=== PATIENT | male | born 1985 | race Caucasian/White ===

== ENCOUNTER 2024-06-21 23:31 | Observation (INO) | payer OTHER, SELFPAY ==
[2024-06-21 20:42] VITALS: BP 146/99
--- NOTE | 2024-06-21 21:31 | ED.GENMED ---
History of Present Illness
General
Chief Complaint: Skin Problem
Source: patient
Exam Limitations: none
Time Seen by Provider: 06/21/24 21:24
History of Present Illness
History of Present Illness:
This is a 38 year old male that comes in with c/o redness on the right posterior leg. States that last week he thinks he was bitten by something. State that there was 3 red spots. Patient went to on Wednesday and was give Bactrim and Amoxicillin.
States that he was told to come back today. States that he was told that the antibiotics are not working as the redness has spread and to come to the ER. States that he was nauseated yesterday after taking the medication. states that he had 2 doses
on Wednesday, Wednesday of both medication and one dose this morning of both. Denies any fever, chills, chest pain, SOB, abd pain, vomiting, diarrhea, headache, dizziness, urinary burning.
Past History
Past History
ED Past Medical History: None
ED Past Surgical History: Urological (Vasectomy)
Social History
Tobacco: Non-smoker (Former chewed tobacco)
Alcohol: Occasional
Personal: Other ()
Living: with family
Employment: Employed
Review of Systems
Review of Systems
All Other Systems: ROS reviewed and negative except as documented in HPI and ROS
Constitutional: Reports no symptoms; Denies fever or chills
EENT: Reports no symptoms
Respiratory: Reports no symptoms; Denies cough or trouble breathing
Cardiac: Reports no symptoms; Denies chest pain
ABD/GI: Reports nausea; Denies abdominal pain, vomiting or diarrhea
Musculoskeletal: Reports no symptoms
Skin: Reports rash (Redness on the right posterior thigh)
Neurological: Reports no symptoms; Denies dizzy or headache
Psychiatric: Reports no symptoms
Phy Exam
General Physical Exam
General Presentation: well appearing and no apparent distress
General age: appears stated age
General Skin: warm and dry
General Habitus: normal
General Mental: alert
General Hydration: appears well hydrated
ENT Exam
ENT Exam: TM's normal, pharynx normal and neck supple
Eye Exam
Eye Exam: EOMI
Cardiovascular Exam
Cardiovascular Exam: regular rate/rhythm, no edema, no murmur and normal peripheral pulses
Pulmonary Exam
Pulmonary Exam: lungs clear, no respiratory distress, no rales, chest non tender, no crackles, no rhonchi, no wheezing and no cough
Gastrointestinal Exam
Gastrointestinal Exam: normal bowel sounds, non tender, soft, no organomegaly, no pulsatile mass and non distended
Musculoskeletal Exam
Musculoskeletal Exam: full ROM and no edema
Skin Exam
Skin Exam: normal color, warm/dry, no petechia and redness (Right posterior thigh, Negative for increased warmth, Redness has increased markings. )
Psychiatric Exam
Psychiatric Exam: normal mood/affect
Course
Orders/Labs/Results
Orders:
Orders
06/21/24 21:45
Complete Blood Count/With Diff Urgent
Comprehensive Metabolic Panel Urgent
Lactic Acid Urgent
06/21/24 22:36
Zosyn 3.375 grams IVPB NOW Piperacillin/Tazo 3.375 Gram [Zosyn] 3.375 gram in 50 ml IV NOW
06/21/24 22:37
*Vancomycin 1,500 mg Loading Dose(consider for 50-69 kg; MAX HD load) Vancomycin [Vancocin] 1,500 mg 0.9% Sodium Chloride 500 ml [Nss] 500 ml IV NOW
Abnormal Lab Results
06/21/24
21:45
MCH 31.8 H pg
(27.0-31.0)
MCHC 37.1 H g/dL
(33.0-37.0)
Eosinophils % 6.4 H %
(0-6)
Creatinine 1.4 H mg/dL
(0.7-1.3)
Glucose 124 H mg/dl
(70-99)
06/21/24 21:45
06/21/24 21:45
Cr slightly elevated. Hyperglycemia. lactic acid 1.9
Vital Signs
Initial and Last Documented VS:
Initial Vital Signs
Temp Pulse Resp BP Pulse Ox
98.9 F 85 20 146/99 100
06/21/24 20:42 06/21/24 20:42 06/21/24 20:42 06/21/24 20:42 06/21/24 20:42
Last Documented Vital Signs
Temp Pulse Resp BP Pulse Ox
98.9 F 85 20 146/99 100
06/21/24 20:42 06/21/24 20:42 06/21/24 20:42 06/21/24 20:42 06/21/24 20:42
MDM/Problems Addressed
Differential Diagnosis Includes:
Cellulitis,
MDM/Problems Addressed:
This is a 38 year old male that comes in with c/o redness or the right posterior thigh. States that he was bitten by something last week and he went to on Wednesday and was placed on Bactrim and Amoxicillin. Patient went back today and was told to
come to the ER as the redness has spread.
will check labs and admit for Cellulitis.
back into see patient. Explained that his WBC are normal, but patient has been on antibiotics. Lactic acid is normal but high normal. Will admit and start on IV antibiotics. Hospitalist notified.
Chronic conditions affecting care:
NA
Acute Exacerbation and/or Progression of Chronic Illness:
NA
*Pulse Oximetry
Patient hypoxic: no
*EKG
Interpreted by ED Provider?: NA
Rate: EKG- N/A
*[facility] Intern Interpretation
Rate: [facility] Intern- N/A
*Critical Care Note
Total Time (30-74mins, 75-104mins- exclusive of procedures): Not Applicable
ED Attending Note
-
Portions of this chart may have been created with voice recognition software.� Occasional wrong word or��sound alike� substitutions may have occurred due to the inherent limitations of voice recognition software.
Discharge Plan
Departure
Patient Disposition: Admit
Date of Disposition: 06/21/24
Time of Disposition: 22:40
Admit to: Med/Surg
Presentation/result/management discussed w/ accepting MD/DO: Hospitalist
Patient with high blood pressure during this ER visit?: Yes
Condition: Good
Covid-19: Not Applicable
Discharge Problem:
Cellulitis of right thigh
Prescriptions:
No Action
cetirizine-pseudoephedrine [Cetiri-D] 5-120 mg Tablet Extended Release 12 Hr
1 tab PO DAILYPRN PRN (Reason: allergies)
Theragen Tablet
1 tab PO DAILY
sulfamethoxazole-trimethoprim [Bactrim DS] 800-160 mg Tablet
1 tab PO BID
Patient Comments:
06/21/24: to take for 10 days, filled 06/19/24
amoxicillin-pot clavulanate [Augmentin] 875-125 mg Tablet
1 tab PO BID
Patient Comments:
06/21/24: to take for 10 days, filled 06/19/24
Referrals:
NONE,* [Family Provider] -
Interventions
Interventions:
*Risk Screen - Suicide Last Done: 06/21/24 20:42
*General Assessment Last Done: 06/21/24 21:45
*Neglect/Abuse Screening Last Done: 06/21/24 20:42
ED- Fall Risk Assessment Last Done: 06/21/24 21:52
ED-Skin Assessment Last Done: 06/21/24 21:52
Discharge Date and Time
Print Language: URDU
[2024-06-21 21:53] LABS: % Eosinophils 6.4 % (0-6); % Immature Granulocytes 0.3 % (0-0.5); % Lymphocytes 34.8 % (20.5-51.1); % Monocytes 6.3 % (1.7-9.3); % Neutrophils 51.2 % (42.2-75.2); Absolute Basophils 0.1 10^3/uL (0-0.2); Absolute Eosinophils 0.5 10^3/uL (0-0.7); Absolute Lymphocytes 2.5 10^3/uL (1.2-3.4); Absolute Monocytes 0.5 10^3/uL (0.1-0.6); Absolute Neutrophils 3.7 10^3/uL (1.4-6.5); Hemoglobin 15.6 g/dL (13.0-18.0); Mean Corp Hgb Conc. 37.1 g/dL (33.0-37.0); Mean Corpuscular Hgb 31.8 pg (27.0-31.0); Mean Corpuscular Volume 85.5 fL (80.0-94.0); Mean Platelet Volume 9.5 fL (7.4-10.4); Nucleated Red Blood Cells % 0 % (-); Platelet Count 234 10^3/uL (130-400); Red Blood Cell Count 4.91 10^6/uL (4.70-6.10); Red Cell Dist. Width 11.8 % (11.5-14.5); White Blood Cell Count 7.2 10^3/uL (4.8-10.8)
[2024-06-21 22:05] LABS: Lactic Acid 1.9 mmol/L (0.7-2.0)
[2024-06-21 22:10] VITALS: BMI 26.8
[2024-06-21 22:10] LABS: ALT (SGPT) 27 U/L (0-50); AST (SGOT) 30 U/L (17-59); Albumin 4.9 g/dl (3.5-5.0); Alkaline Phosphatase 88 U/L (38-126); Blood Urea Nitrogen 19 mg/dl (9-20); Carbon Dioxide 22 mmol/L (22-30); Chloride 101 mmol/L (98-107); Glucose 124 mg/dl (70-99); Potassium 3.8 mmol/L (3.5-5.1); Sodium 138 mmol/L (135-145); Total Bilirubin 0.4 mg/dl (0.2-1.3); Total Protein 7.8 g/dl (6.3-8.2); eGFR > 60.00
--- NOTE | 2024-06-21 22:53 | HPS.HSE ---
Family Physician
-
Family Physician: * NONE
Chief Complaint
-
Redness of Right Thigh
History of Present Illness
Patient is a 38 y/o male without significant past medical history who presents with redness of right thigh. Patient reports he noted a few red dots on the back of his thigh last week. Over the coarse of week the redness has gotten much worse,
associated with intense pruritus which is much worse at night. He was seen at urgent care on Wednesday (2 day ago) at which time he was started on Augmentin and Bactrim. While at urgent care they marked the edges of the redness. Patient reports the
redness has expanded outside the markings prompting him to come to the emergency room for evaluation. He denies fevers, sweats or chills.
Medical History
Past Medical History
Past Medical History: Reports None
Past Surgical History: Reports Other
Additional Past Surgical History:
Vasectomy
Social History
Tobacco: Non-smoker
Alcohol: Occasional
Drug: None
Family History
Family History: Not pertinent
Allergies / Home Medications
Allergies reflects when Allergies were last updated in [facility].
Home Medications with original date entered in [facility]
Allergy/Medication List:
Allergies
Allergy/AdvReac Type Severity Reaction Status Date / Time
No Known Allergies Allergy Verified 06/21/24 20:44
Home Medications
amoxicillin 875 mg-potassium clavulanate 125 mg tablet 1 tab PO BID 06/21/24
cetirizine 5 mg-pseudoephedrine ER 120 mg tablet,extended release,12hr (Cetiri-D) 1 tab PO DAILYPRN PRN allergies 06/21/24
sulfamethoxazole 800 mg-trimethoprim 160 mg tablet (Bactrim DS) 1 tab PO BID 06/21/24
therapeutic multivitamin 1 tab PO DAILY 06/21/24
Review of Systems
-
A 12 point ROS was completed and negative except as noted: Yes
Constitutional: Denies Fever or Chills
Physical Exam
Vital Signs
Vital Signs
Temp Pulse Resp BP Pulse Ox
98.9 F 85 20 146/99 100
06/21/24 20:42 06/21/24 20:42 06/21/24 20:42 06/21/24 20:42 06/21/24 20:42
Physical Exam
General: Comfortable and Conversant
HEENT: Anicteric and Moist mucous membranes
Respiratory: Clear and Non Labored Respirations
Cardiac: S1/S2 and Regular Rhythm
GI: Soft and Non Tender
Rectal: Deferred by Provider
Musculoskeletal: No Clubbing, No Cyanosis and No Edema
Skin: Other (Moderate erythema posterior right thigh slightly raised, rough and slightly scaly)
Neuro: Awake, Alert, Oriented and Nonfocal/grossly intact
Psych: Calm
Laboratory Results
-
06/21/24 21:45
06/21/24 21:45
Laboratory Results
Lactic Acid 1.9 mmol/L (0.7-2.0) 06/21/24 21:45
Total Bilirubin 0.4 mg/dl (0.2-1.3) 06/21/24 21:45
AST 30 U/L (17-59) 06/21/24 21:45
ALT 27 U/L (0-50) 06/21/24 21:45
Alkaline Phosphatase 88 U/L (38-126) 06/21/24 21:45
Data Reviewed
-
Lab Data: Labs Reviewed by me
Impression/Plan
-
Right Posterior Thigh Contact Dermatitis with Superimposed Cellulitis
-Transition to IV Ancef
-Add Benadryl prn for pruritus
-Consider topical steroids
Elevated Creatinine, unknown baseline
-Give IVFs overnight
-Recheck Creatinine in AM
DVT proph: Lovenox
Code Status: Full Code
--- NOTE | 2024-06-21 23:04 | W.PN.UPDATE ---
Update Note
Progress Note Update
Patient seen in conjunction with RUPAL. I agree with the findings on history and physical. I agree with the assessment and plan listed otherwise.
This is an otherwise healthy 38-year-old male with no known segment past medical history except for a vasectomy presenting to the emergency department with redness of posterior right thigh associated with some degree of pruritus. It is unclear
exactly when symptoms began but it started as 3 punctate spots in the area which some localized erythema. He is unaware of any insect bites. He rubbed the area frequently and it started spreading. He was seen in urgent care and was started on
Bactrim and Augmentin. He was told to return for follow-up a couple days later. At that time the redness spread and patient was referred to the ED. Patient himself denies any tenderness. He denies any warmth. He has no fevers or chills. He
denies any lower extremity edema. He has been no recent antibiotic use otherwise. No recent travel stop no recent infections. No prior history of MRSA or other skin infection.
In the ED was afebrile hemodynamically stable and in no acute distress. Examination shows erythematous patch with satellite lesions, no induration, no fluid collection, no tenderness to palpation. CBC within normal limits. Electrolytes
BUN/creatinine were also normal.
Assessment plan
Skin lesion - possible dermatitis vs cellulitis, less likely cellulitis
- admit to obs med surg
- cefazolin iv for now
- benadryl for icthing
- likely start topic steroid cream after completing abx course
DVT PPX - SCDs
Code status - full code
[2024-06-21] MEDS: ANCEF 10 IV (23:12)
[2024-06-21] MEDS: BENADRYL 25 MG PO (23:12)
[2024-06-21] MEDS: NSS 1000 IV (23:22)
[2024-06-21 23:28] VITALS: BP 140/86
[2024-06-22 04:27] VITALS: BP 118/86; BMI 27.5
[2024-06-22] MEDS: ANCEF 10 IV ×3 (06:30→21:06)
[2024-06-22 07:30] VITALS: BP 120/75
[2024-06-22] MEDS: BENADRYL 25 MG PO (07:46)
[2024-06-22 08:30] LABS: Hemoglobin 14.9 g/dL (13.0-18.0); Mean Corp Hgb Conc. 35.5 g/dL (33.0-37.0); Mean Corpuscular Volume 90.1 fL (80.0-94.0); Mean Platelet Volume 9.8 fL (7.4-10.4); Platelet Count 201 10^3/uL (130-400); Red Blood Cell Count 4.66 10^6/uL (4.70-6.10); Red Cell Dist. Width 11.9 % (11.5-14.5); White Blood Cell Count 5.3 10^3/uL (4.8-10.8)
[2024-06-22 08:48] LABS: Blood Urea Nitrogen 17 mg/dl (9-20); Calcium 9.6 mg/dl (8.4-10.2); Carbon Dioxide 27 mmol/L (22-30); Chloride 100 mmol/L (98-107); Estimated Creatinine Clearance 76 ml/min; Glucose 91 mg/dl (70-99); Potassium 4.1 mmol/L (3.5-5.1); Sodium 140 mmol/L (135-145); eGFR > 60.00
--- NOTE | 2024-06-22 12:30 | CM ---
Patient seen bedside, initial assessment completed. Patient resides with his children in a multiple story home. Patient is independent with ADLs/IADLs, denies VN/SNF history. Patient denies PCP, not interested in a list at this time. Patient
confirms pharmacy [facility] [place], confirms prescription coverage. Patient denies insecurities at home. CM reviewed OBS status, form signed, placed in chart, patient provided with copy. CM will continue to follow for all discharge planning needs.
Plan; home no needs likely.
--- NOTE | 2024-06-22 14:00 | W.PN.HOSP.TC ---
Today's Communication/Plan
-
provide topical steroids
stop ivf
continue abx one more day
discgharge tomorrow
Assessment / Plan
Assessment / Plan
Right posterior thigh cellulitis
-On exam patient have right 3 demarcated round areas of erythema, no purulence
-Potential differential of allergic skin reaction as patient voiced itching to area. question of bug bite
-Maintain on empiric IV ancef for now
-Providing topical steroids as well
-will need to f/u with dermatology in office if no improvement
Elevated Creatinine, unknown baseline
-Give IVFs overnight
-good oral intake, hold further IVF
DVT proph: Lovenox
Code Status: Full Code
Anticipated Discharge: Within 24 hours
Subjective/Interval History
-
Date of Service: June 22, 2024
continues to have some right posterior thigh itching
afebrile
Objective Data
-
Labs:
Laboratory Results
06/22/24
07:24
WBC 5.3
Hgb 14.9
Hct 42.0
Plt Count 201
Sodium 140
Potassium 4.1
Chloride 100
Carbon Dioxide 27
BUN 17
Creatinine 1.4 H
Glucose 91
Calcium 9.6
Vital Signs:
Vital Signs
Temp Pulse Resp BP Pulse Ox
98.1 F 66 18 120/75 99
06/22/24 07:30 06/22/24 07:30 06/22/24 07:30 06/22/24 07:30 06/22/24 07:30
I&O
06/21/24 06/22/24 06/23/24
06:59 06:59 06:59
Intake Total 480 / 480
Balance 480 / 480
Review of Systems
-
Respiratory: Reports No Symptoms
Cardiac: Reports No Symptoms
Abdomen/GI: Reports No Symptoms
Physical Exam
-
General: No Apparent Distress and Comfortable
HEENT: Negative Oxygen
Respiratory: Clear to Auscultation
Cardiac: Regular Rhythm and S1/S2; Negative Murmur or Rub
GI: Soft, Nontender, Nondistended and Normal Bowel Sounds
Skin: Other (Right lower posterior thigh 3 large area of erythema)
Neuro: Awake, Alert, Oriented, No Motor Deficits and Nonfocal/Grossly Intact
Psych: Calm
[2024-06-22 15:00] VITALS: BP 145/94
[2024-06-22] MEDS: TRIAMCINOLONE ACETONIDE 0.1% CREAM 1 APPLIC TOPICAL ×2 (15:39→21:06)
[2024-06-22 23:30] VITALS: BP 119/86
[2024-06-23] MEDS: ANCEF 10 IV (05:15)
[2024-06-23 07:00] VITALS: BP 123/82
[2024-06-23 07:15] LABS: Hematocrit 44.2 % (39.0-52.0); Hemoglobin 15.8 g/dL (13.0-18.0); Mean Corp Hgb Conc. 35.7 g/dL (33.0-37.0); Mean Corpuscular Hgb 32.3 pg (27.0-31.0); Mean Corpuscular Volume 90.4 fL (80.0-94.0); Mean Platelet Volume 9.8 fL (7.4-10.4); Platelet Count 189 10^3/uL (130-400); Red Blood Cell Count 4.89 10^6/uL (4.70-6.10); Red Cell Dist. Width 11.9 % (11.5-14.5); White Blood Cell Count 4.9 10^3/uL (4.8-10.8)
[2024-06-23 08:04] LABS: Blood Urea Nitrogen 16 mg/dl (9-20); Calcium 10.1 mg/dl (8.4-10.2); Carbon Dioxide 27 mmol/L (22-30); Chloride 101 mmol/L (98-107); Estimated Creatinine Clearance 76 ml/min; Glucose 93 mg/dl (70-99); Potassium 4.8 mmol/L (3.5-5.1); Sodium 140 mmol/L (135-145); eGFR > 60.00
--- NOTE | 2024-06-23 11:23 | CM ---
Chart reviewed home no needs.
Plan; Home no needs.
[2024-06-23] MEDS: TRIAMCINOLONE ACETONIDE 0.1% CREAM 1 APPLIC TOPICAL (11:33)
[2024-06-23 12:00] VITALS: BP 115/79
[2024-06-23 12:10] LABS: Urine Albumin Negative (Neg - Trace); Urine Bilirubin Negative (Negative); Urine Character Slightly Cloudy (Clear); Urine Color Yellow; Urine Glucose Negative (Negative); Urine Ketone Negative (Negative); Urine Leukocyte Negative (Negative); Urine Nitrite Negative (Negative); Urine Occult Blood Negative (Negative); Urine Urobilinogen Negative (Neg - 1+)
--- NOTE | 2024-06-23 16:11 | W.PN.HOSP.TC ---
Today's Communication/Plan
-
d/c home
Assessment / Plan
Assessment / Plan
Right posterior thigh cellulitis
-On exam patient have right 3 demarcated round areas of erythema, no purulence
-Potential differential of allergic skin reaction as patient voiced itching to area. question of bug bite
-Maintain on empiric IV ancef for now
-Providing topical steroids as well
-will need to f/u with dermatology in office if no improvement
Elevated Creatinine, unknown baseline
-Got IVF overnight
-Follow-up BMP prescription provided
-Patient to follow-up with nephrology in office if not improved
DVT proph: Lovenox
Code Status: Full Code
Anticipated Discharge: Today
Subjective/Interval History
-
Date of Service: June 23, 2024
no issues overnight
afebrile
Objective Data
-
Labs:
Laboratory Results
06/23/24
06:30
WBC 4.9
Hgb 15.8
Hct 44.2
Plt Count 189
Sodium 140
Potassium 4.8
Chloride 101
Carbon Dioxide 27
BUN 16
Creatinine 1.4 H
Glucose 93
Calcium 10.1
Vital Signs:
Vital Signs
Temp Pulse Resp BP Pulse Ox
98.0 F 89 18 115/79 99
06/23/24 12:00 06/23/24 12:00 06/23/24 12:00 06/23/24 12:00 06/23/24 12:00
I&O
06/22/24 06/23/24 06/24/24
06:59 06:59 06:59
Intake Total 480 / 480 780 / 780
Balance 480 / 480 780 / 780
Review of Systems
-
Respiratory: Reports No Symptoms
Cardiac: Reports No Symptoms
Abdomen/GI: Reports No Symptoms
Physical Exam
-
General: No Apparent Distress and Comfortable
HEENT: Negative Oxygen
Skin: Other (Right lower posterior thigh 3 large area of erythema)
Neuro: Awake, Alert, Oriented, No Motor Deficits and Nonfocal/Grossly Intact
Psych: Calm
--- NOTE | 2024-06-24 17:01 | W.DCSUMMARY ---
Discharge Summary
Discharge Data
Date of Admission: 06/21/24
Date of Discharge: 06/23/24
-
Pending Results: No
Hospital Course
Discharging Physician : Dr Genaro Johnson
Disposition : To home
Primary care physician : None
Principal Discharge diagnosis :
Posterior right thigh cellulitis versus insect bite related dermatitis
Presumed acute kidney injury
Chronic Discharge diagnosis :
None
Hospital Course :
Patient is a 38-year-old male with no mentioned past medical history came to ER with erythema and itching in the right side of posterior thigh that patient noticed 3 days back before ER visit. Patient was given oral Augmentin/Bactrim prescription
by urgent care although symptoms did not improve. In ER evaluation suggestive of persistent cellulitis versus insect bite related dermatitis. Patient was started on IV Ancef therapy. Patient also provided topical steroid cream. Laboratory
evaluation rule out any systemic reaction. Patient was monitored for teetered in hospital and was discharged on a short course of antibiotic. Patient instructed to follow-up with dermatology in office if erythema does not improve in next few days.
Patient also incidentally found to have minimal renal dysfunction, possibly from Bactrim although despite IVF and cessation of Bactrim therapy did not improve. Patient instructed to follow-up with nephrology in office after a follow-up BMP
outpatient basis.
Important imaging findings :
None
Procedure findings :
None
Discharge Plan
-
Patient Disposition: Home (Routine Discharge)
Discharge Diagnosis/Procedures: Right posterior thigh cellulitis vs allergic dermatitis
Condition: Fair
Diet: Regular
Activity: As tolerated
Driving Restrictions: As prior to admission
Bathing Restrictions: OK to Shower
Blood Work: BMP in 1 week
Referrals:
M[facility] Giral[facility] MD [Active] - in two to four weeks
NONE,* [Family Provider] -
Prescriptions:
New
cephalexin 750 mg capsule
750 mg PO TID 7 Days Qty: 21 0RF
triamcinolone acetonide 0.5 % cream
1 applic topical TID Qty: 15 0RF
Continued
cetirizine-pseudoephedrine [Cetiri-D] 5-120 mg Tablet Extended Release 12 Hr
1 tab PO DAILYPRN PRN (Reason: allergies)
therapeutic multivitamin Tablet
1 tab PO DAILY
Discontinued
sulfamethoxazole-trimethoprim [Bactrim DS] 800-160 mg Tablet
1 tab PO BID
Patient Comments:
06/21/24: to take for 10 days, filled 06/19/24
amoxicillin-pot clavulanate [Augmentin] 875-125 mg Tablet
1 tab PO BID
Patient Comments:
06/21/24: to take for 10 days, filled 06/19/24
Discharge Orders:
Discharge Patient (As Directed); Ordered 06/23/24
Ordered By: Genaro Johnson
Discharge Date and Time
Discharge Date/Time: 06/23/24 13:24
Print Language: TELUGU
== END 2024-06-23 13:24 | disposition home or self-care (01) ==
LOC: 4 WEST ACU 23:31
PROVIDERS: Clinical Nurse Specialist Family Health; Physician Assistant Medical; ADMITTING PHYSICIAN Internal Medicine; ATTENDING PHYSICIAN Hospitalist; EMERGENCY PHYSICIAN Student in an Organized Health Care Education/Training Program
DX: L03.115 Cellulitis of right lower limb (principal); R21 Rash and other nonspecific skin eruption; L25.9 Unspecified contact dermatitis, unspecified cause; L29.89 Other pruritus; R11.0 Nausea; R79.89 Other specified abnormal findings of blood chemistry; Z87.891 Personal history of nicotine dependence
CPT/HCPCS: 80048; 80053; 81003; 83605; 85025; 85027; 96361; 96374; 96375; 99284; G0378